=== PATIENT | female | born 1950 | race Caucasian/White ===

== ENCOUNTER 2016-11-22 10:44 | Day surgery (SDC) | payer MEDICARE, BC ==
[2016-11-22] MEDS ORDERED: LACTATED RINGERS 1,000 ML IV ONE ×2 (11:16→12:37)
[2016-11-22] MEDS ORDERED: MIDAZOLAM 2 MG/2 ML VIAL IVP ONE (11:36)
[2016-11-22] MEDS ORDERED: fentaNYL 250 MCG/5 ML VIAL IVP ONE (11:36)
[2016-11-22] MEDS ORDERED: ONDANSETRON 4 MG/2 ML VIAL ONE (13:13)
== END 2016-11-22 10:45 | disposition home or self-care (01) ==
PROC: 0DBK8ZX Excision of Ascending Colon, Via Natural or Artificial Opening Endoscopic, Diagnostic (ICD-10-PCS; principal; 2016-11-22 11:45)
DX: Z12.11 Encounter for screening for malignant neoplasm of colon (principal); D12.2 Benign neoplasm of ascending colon; I73.00 Raynaud's syndrome without gangrene; M81.0 Age-related osteoporosis without current pathological fracture; E89.0 Postprocedural hypothyroidism
CPT/HCPCS: 45380; J3010; J7120

== ENCOUNTER 2017-01-30 10:59 | Day surgery (SDC) | payer MEDICARE, BC ==
[2017-01-30] MEDS ORDERED: LACTATED RINGERS 1,000 ML IV ONE (11:18)
[2017-01-30] MEDS ORDERED: ONDANSETRON 4 MG/2 ML VIAL ONE (11:19)
[2017-01-30] MEDS ORDERED: fentaNYL 250 MCG/5 ML VIAL IVP ONE (12:23)
[2017-01-30] MEDS ORDERED: MIDAZOLAM 2 MG/2 ML VIAL IVP ONE (12:23)
== END 2017-01-30 11:00 | disposition home or self-care (01) ==
PROC: 0DBK8ZX Excision of Ascending Colon, Via Natural or Artificial Opening Endoscopic, Diagnostic (ICD-10-PCS; principal; 2017-01-30 12:00)
DX: D12.2 Benign neoplasm of ascending colon (principal); K57.30 Diverticulosis of large intestine without perforation or abscess without bleeding; H40.9 Unspecified glaucoma; M81.0 Age-related osteoporosis without current pathological fracture; Z88.0 Allergy status to penicillin
CPT/HCPCS: 45385; J3010; J7120

== ENCOUNTER 2017-02-12 13:52 | Outpatient (CLI) | payer MEDICARE, BC | END 2017-02-12 13:53 | disposition home or self-care (01) | DX: R05 Cough (principal); R50.9 Fever, unspecified ==

== ENCOUNTER 2017-09-16 08:33 | Outpatient (CLI) | payer MEDICARE, BC ==
--- NOTE | 2017-09-18 15:53 | Mammography Report ---
DIGITAL SCREENING MAMMOGRAPHY: 09/16/2017 COMPARISON: 09/14/2016, 09/13/2015, 09/13/2014, 07/17/2013, 07/18/2012, 06/11/2011, 04/03/2010. TECHNIQUE: Bilateral digital CC, exaggerated CC, and MLO projections. FINDINGS: The breast tissue is heterogeneously dense. There are no suspicious microcalcifications, skin thickening or significant interval change on the left. On the right, there is a questionable no dular area of increasing density in the posterior right breast 12 o'clock position. This likely repr esents superimposed of structures, but suggest additional evaluation by spot compression and true lat eral views. If density persists, ultrasound may be useful. IMPRESSION: NEGATIVE LEFT BREAST. BIRADS CATEGORY: 1, NEGATIVE. NEEDS ADDITIONAL EVALUATION RIGHT BREAST. BIRADS CATEGORY: 0, INCOMPLETE. STANDARD QUALIFYING STATEMENTS 1. This examination was reviewed with the aid of Computed-Aided Detection (CAD). 2. A negative or benign imaging report should not delay biopsy if clinically suspicious findings are present. Consider surgical consultation if warranted. More than 5% of cancers are not identified b y imaging. 3. Dense breasts may obscure an underlying neoplasm. 16:9:04 JOB #: [id number] EXT JOB #:[id number]
== END 2017-09-16 08:34 | disposition home or self-care (01) ==
LOC: DI 08:33
PROVIDERS: ATTEND Internal Medicine
DX: Z12.31 Encounter for screening mammogram for malignant neoplasm of breast (principal); R92.8 Other abnormal and inconclusive findings on diagnostic imaging of breast
CPT/HCPCS: 77067

== ENCOUNTER 2018-10-04 09:15 | Outpatient (CLI) | payer MEDICARE, BC ==
--- NOTE | 2018-10-06 10:18 | Ultrasound Report ---
Reason: THYROID ENLARGEMENT Procedure Date: 10/04/2018 Accession Number: [id number] / [id number] Procedure: US - Head or Neck Soft Tissue CPT Code: FULL RESULT: EXAM: THYROID ULTRASOUND EXAM DATE: 10/04/2018 10:07 AM. CLINICAL HISTORY: Thyroid enlargement. COMPARISON: None. TECHNIQUE: Real time sonographic imaging of the thyroid was performed by the diamond grinder. Multiple aircraft sales representative static images were saved for review. FINDINGS: THYROID GLAND: Status post right thyroidectomy. No masses are seen in the thyroid bed. Left Lobe: 4.7 x 2.1 x 2.1 cm, volume 10.8 cc. Relatively heterogeneous background echotexture with increased vascularity by color Doppler in the setting of multinodularity. Left Lobe Nodules: There are 3 dominant thyroid nodules which appear heterogeneous solid on ultrasound and measure 1.9 x 1.2 x 1.2 cm, 2.0 x 0.7 x 1.7 cm and 1.4 x 1.4 x 1.2 cm respectively. Isthmus: 0.2 cm AP. Isthmic Nodules: None. LYMPH NODES: No adenopathy demonstrated in the central or lateral compartment. OTHER: None. IMPRESSION: Hypervascular multinodular left lobe of the thyroid, most suggestive of multinodular goiter. While overall risk of malignancy is considered decreased with increasing number of thyroid nodules, all 3 dominant thyroid nodules in the left lobe meet criteria for fine-needle aspiration if this has not been performed. Management recommendations are based on 2015 [place] [employer] Management Guidelines for Adult Patients with Thyroid Nodules and Differentiated Thyroid Cancer. RADIA
== END 2018-10-04 09:16 | disposition home or self-care (01) ==
LOC: DI 09:15
PROVIDERS: ATTEND Internal Medicine
DX: E04.2 Nontoxic multinodular goiter (principal)
CPT/HCPCS: 76536

== ENCOUNTER 2018-10-08 12:50 | Outpatient (CLI) | payer MEDICARE, BC ==
--- NOTE | 2018-10-09 08:32 | Mammography Report ---
Reason: SCREENING MAMMO Procedure Date: 10/08/2018 Accession Number: [id number] / [id number] Procedure: [facility] - Screening Mammo w/Shamar CPT Code: FULL RESULT: EXAM: Screening Mammo w/Shamar DATE: 10/08/2018 1:12 PM CLINICAL HISTORY: Screening encounter. History of early menses. History of cyst removal in 1970 as well as history of stereotactic biopsies with benign pathology results. TECHNIQUE: Bilateral CC and MLO views were obtained. COMPARISON: 09/16/2017 through 09/13/2014. FINDINGS: The breasts demonstrate heterogeneously dense fibroglandular parenchyma bilaterally. A biopsy clip is again seen in the left breast. No suspicious masses, clustered microcalcifications, or regions of architectural distortion are identified. IMPRESSION: Benign findings RECOMMENDATION: Routine annual screening unless otherwise clinically indicated. BIRADS CATEGORY 2: Benign findings STANDARD QUALIFYING STATEMENTS: 1. This examination was not reviewed with the aid of Computer-Aided Detection (CAD). 2. A negative or benign imaging report should not preclude biopsy if clinically suspicious findings are present. 3. Dense breasts may obscure an underlying neoplasm. 4. This examination was reviewed with the aid of 3D breast imaging (tomosynthesis).
== END 2018-10-08 12:51 | disposition home or self-care (01) ==
LOC: DI 12:50
DX: Z12.31 Encounter for screening mammogram for malignant neoplasm of breast (principal)
CPT/HCPCS: 77063; 77067

== ENCOUNTER 2018-11-27 13:33 | Outpatient (CLI) | payer MEDICARE, BC ==
[2018-11-27] MEDS ORDERED: BUFFERED LIDOCAINE 10 ML SYRINGE ONE (13:35)
[2018-11-27] MEDS ORDERED: BUPIVACAINE 0.5%-EPI 1:200000 PF 10 ML VIAL ONE (14:10)
[2018-11-27] MEDS ORDERED: BUFFERED LIDOCAINE 10 ML SYRINGE IU ONE (17:59)
[2018-11-27] MEDS ORDERED: BUPIVACAINE 0.5%-EPI 1:200000 PF 10 ML VIAL SUBQ ONE (17:59)
--- NOTE | 2018-11-28 09:25 | Ultrasound Report ---
Reason: THYROID NODULE Procedure Date: 11/27/2018 Accession Number: [id number] / [id number] Procedure: US - FNA Bx w/US Gnd 1st les CPT Code: 78279 FULL RESULT: PROCEDURE: ULTRASOUND GUIDED BIOPSY PREOPERATIVE DIAGNOSIS: Nodules in left thyroid lobe in a patient with prior right thyroidectomy for Hurthle cell adenoma. POSTOPERATIVE DIAGNOSIS: Same TECHNIQUE: Following written and oral informed consent including procedure risks and alternatives, the patient was brought to the Ultrasound suite and positioned. Using local anesthesia, sterile technique, and direct ultrasound control, the 2 most suspicious thyroid nodules are localized: 1. Lateral mid thyroid vascular hypoechoic 2 x 0.7 x 1.7 cm 2. Superior pole 1.9 x 1.2 x 1.2 cm mildly vascular with calcification. 6 FNA samples are obtained of each nodule with 3 placed in CytoLyt and 3 in Thyrosec. All 12 samples are appropriately marked and are sent to pathology for evaluation. ANESTHESIA: Local with lidocaine and Sensorcaine. PEDIATRIC SPORTS MEDICINE SPECIALIST: Dr Hickman ESTIMATED BLOOD LOSS: Minimal FLUOROSCOPY TIME: None. COMPLICATIONS: None. CONDITION: Good. SPECIMEN: 22-gauge FNA x12 IMPLANTS: None. FINDINGS: Real-time ultrasound performed with static images saved to the PACS demonstrating the needle directed into the nodules. IMPRESSION: Uncomplicated ultrasound guided FNA of 2 left thyroid nodules as described. Pathology results will be reported separately. RADIA
== END 2018-11-27 13:34 | disposition home or self-care (01) ==
LOC: DI 13:33
PROVIDERS: ATTEND Internal Medicine
DX: E04.2 Nontoxic multinodular goiter (principal)
CPT/HCPCS: 10005

== ENCOUNTER 2019-03-05 12:56 | Outpatient (CLI) | payer MEDICARE, BC ==
[2019-03-05 13:40] LABS: CALCIUM 9.3 mg/dL (8.5-10.3)
[2019-03-05 13:56] LABS: THYROID STIMULATING HORMONE 0.39 uIU/mL (0.34-5.60)
[2019-03-05 13:59] LABS: FREE T4 (FREE THYROXINE) 1.39 ng/dL (0.58-1.64)
[2019-03-10 13:21] LABS: THYROGLOBULIN 0.3 ng/mL
== END 2019-03-05 12:57 | disposition home or self-care (01) ==
LOC: LAB 12:56
PROVIDERS: ATTEND Internal Medicine Endocrinology, Diabetes & Metabolism
DX: C73 Malignant neoplasm of thyroid gland (principal)
CPT/HCPCS: 36415; 80048; 82306; 83970; 84432; 84439; 84443; 86800

== ENCOUNTER 2019-10-06 10:04 | Outpatient (CLI) | payer MEDICARE, BC ==
--- NOTE | 2019-10-06 13:35 | XRAY Report ---
Reason: RT HIP PAIN Procedure Date: 10/06/2019 Accession Number: [id number] / [id number] Procedure: XR - Hip w/Pelvis 2-3V RT CPT Code: Final Report FULL RESULT: EXAM: RIGHT HIP RADIOGRAPHY EXAM DATE: 10/06/2019 10:28 AM. CLINICAL HISTORY: Right hip pain. COMPARISON: None. TECHNIQUE: 2 views of the right hip and AP view of the pelvis. FINDINGS: Bones: Normal. No fractures or bone lesion. Joints: Mild marginal osteophytosis of both femoral acetabular joints. No dislocation. The hip joint space is moderately narrowed on the right and mildly narrowed on the left. Soft Tissues: Normal. No soft tissue swelling. IMPRESSION: Moderate degenerative disease of the right hip. RADIA
== END 2019-10-06 10:05 | disposition home or self-care (01) ==
LOC: DI 10:04
PROVIDERS: ATTEND Internal Medicine
DX: M16.11 Unilateral primary osteoarthritis, right hip (principal)

== ENCOUNTER 2019-10-21 11:45 | Outpatient (CLI) | payer MEDICARE, BC ==
[2019-10-21 12:48] LABS: CALCIUM 9.1 mg/dL (8.5-10.3); CREATININE 0.9 mg/dL (0.4-1.0)
== END 2019-10-21 11:46 | disposition home or self-care (01) ==
LOC: LAB 11:45
PROVIDERS: ATTEND Internal Medicine Endocrinology, Diabetes & Metabolism
DX: C73 Malignant neoplasm of thyroid gland (principal)
CPT/HCPCS: 36415; 80048; 84432; 84443; 86800

== ENCOUNTER 2020-05-03 08:07 | Outpatient (CLI) | payer MEDICARE, BC ==
[2020-05-03 08:38] LABS: CALCIUM 9.2 mg/dL (8.5-10.3)
== END 2020-05-03 08:08 | disposition home or self-care (01) ==
LOC: LAB 08:07
PROVIDERS: ATTEND Internal Medicine Endocrinology, Diabetes & Metabolism
DX: C73 Malignant neoplasm of thyroid gland (principal)
CPT/HCPCS: 36415; 80048; 84432; 84443; 86800

== ENCOUNTER 2020-09-12 16:52 | Outpatient (CLI) | payer MEDICARE, BC | END 2020-09-12 16:53 | disposition home or self-care (01) | LOC: COV 16:52 | PROVIDERS: ATTEND Family Medicine | DX: R50.9 Fever, unspecified (principal); R05 Cough; M79.10 Myalgia, unspecified site; R09.81 Nasal congestion; Z20.828 Contact with and (suspected) exposure to other viral communicable diseases ==

== ENCOUNTER 2020-10-13 14:15 | Outpatient (CLI) | payer MEDICARE, BC ==
--- NOTE | 2020-10-13 15:40 | DEXA Report ---
PROCEDURE: Dexa Spine and/or Hip INDICATIONS: OSTEOPOROSIS TECHNIQUE: Dual energy x-ray absorptiometry (DXA) was performed on a [employer] System. Regions measur ed are the AP Spine, femoral neck, and if needed forearm. COMPARISON: 09/14/2016. FINDINGS: Lumbar Spine: Bone Mineral Density 0.834 g/cm/cm,T score -2.9, /there is interval 3.5% increase in total lumbar spine bone mineral density since previous study. Left Hip: Bone Mineral Density 0.769 g/cm/cm,T score -1.9, there is 2.2% decrease in left total hip bone compliance examiner al density since previous study. Left Femoral Neck: Bone Mineral Density 0.770 g/cm/cm, T score -1.9. Impression: Osteoporosis. Patients with diagnosis of osteoporosis or osteopenia should have regular bone mineral density assess ment. For those eligible for Medicare, routine testing is allowed once every 2 years. Testing frequ ency can be increased for patients who have rapidly progressing disease or for those who are receivin g medical therapy to restore bone mass. Reviewed by: Godfrey Chow MD on 10/13/2020 3:39 PM PST Approved by: Godfrey Chow MD on 10/13/2020 3:39 PM PST Station ID: [id number]
== END 2020-10-13 14:16 | disposition home or self-care (01) ==
LOC: DI 14:15
PROVIDERS: ATTEND Internal Medicine
DX: M81.0 Age-related osteoporosis without current pathological fracture (principal)

== ENCOUNTER 2020-11-01 08:00 | Outpatient (CLI) | payer MEDICARE, BC ==
[2020-11-01 10:08] LABS: CALCIUM 9.2 mg/dL (8.5-10.3)
== END 2020-11-01 23:59 | disposition home or self-care (01) ==
LOC: LAB 08:00
PROVIDERS: ATTEND Internal Medicine Endocrinology, Diabetes & Metabolism
DX: C73 Malignant neoplasm of thyroid gland (principal)
CPT/HCPCS: 36415; 80048; 84443; 86800

== ENCOUNTER 2020-11-08 08:00 | Outpatient (CLI) | payer MEDICARE, BC | END 2020-11-08 23:59 | disposition home or self-care (01) | LOC: LAB 08:00 | PROVIDERS: ATTEND Internal Medicine Endocrinology, Diabetes & Metabolism | DX: C73 Malignant neoplasm of thyroid gland (principal) | CPT/HCPCS: 36415; 84432; 86800 ==

== ENCOUNTER 2021-04-20 09:48 | Outpatient (CLI) | payer MEDICARE, BC ==
[2021-04-20 10:26] LABS: CALCIUM 9.4 mg/dL (8.5-10.3); POTASSIUM 4.1 mmol/L (3.5-5.0)
[2021-04-25 21:56] LABS: THYROGLOBULIN <0.1 ng/mL
== END 2021-04-20 09:49 | disposition home or self-care (01) ==
LOC: LAB 09:48
PROVIDERS: ATTEND Internal Medicine Endocrinology, Diabetes & Metabolism
DX: C73 Malignant neoplasm of thyroid gland (principal)
CPT/HCPCS: 36415; 80048; 84432; 84443; 86800

== ENCOUNTER 2021-05-29 12:24 | Outpatient (CLI) | payer MEDICARE, BC ==
[2021-05-29] MEDS ORDERED: IOPAMIDOL-300 100 ML VIAL ONE (12:49)
[2021-05-29] MEDS ORDERED: IOVERSOL 320 50 ML VIAL ONE (12:49)
--- NOTE | 2021-05-29 14:54 | CT Report ---
PROCEDURE: Abdomen/Pelvis W INDICATIONS: RLQ PAIN CONTRAST: IV CONTRAST: Isovue 300 ml: 100 PO CONTRAST: Optiray 320 ml50 TECHNIQUE: After the administration of IV and oral contrast, 5 mm thick sections acquired from the diaphragms to the symphysis. 5 mm thick coronal and sagittal reformats were acquired. For radiation dose reducti on, the following was used: automated exposure control, adjustment of mA and/or kV according to madi ent size. COMPARISON: None. FINDINGS: ABDOMEN: Lung bases: Normal Heart:Normal. Liver: Low-attenuation presumed cyst involving the subcapsular left lobe on image 27/3 measuring 2 cm . Hepatic foci statistically representing cysts although technically indeterminate due to small size. Hepatic steatosis. Gallbladder: Partially contracted otherwise unremarkable. Bile ducts: Normal. Pancreas: Normal. Spleen: Normal. Adrenals: Normal. Kidneys and ureters: Normal. Stomach and duodenum: Normal. Bowel: Normal. The appendix is not clearly identified however no suspicious inflammatory changes in t he right lower quadrant. No evidence of bowel obstruction. Scattered air-fluid levels which are technically nonspecific. Colon ic diverticulosis incidentally noted without evidence of acute inflammation. Other: No free fluid or air. Abdominal nodes: Normal. Aorta: Normal in size. IVC: Normal. Ventral wall: Normal. PELVIS: Bladder: Normal. Pelvic nodes: Normal. Inguinal: No hernia. Bones: No vertebral body compression fracture. No suspicious bone lesion. IMPRESSION: The appendix is not clearly identified however no suspicious inflammatory changes in the right lower quadrant. Elsewhere, no acute abnormality. Hepatic steatosis. Presumed hepatic cysts. Reviewed by: Neno Penn MD on 05/29/2021 2:52 PM PDT Approved by: Neno Penn MD on 05/29/2021 2:52 PM PDT Station ID: [id number]
[2021-05-29] MEDS ORDERED: IOPAMIDOL-300 100 ML VIAL IVP ONE (15:00)
[2021-05-29] MEDS ORDERED: IOVERSOL 320 50 ML VIAL PO ONE (15:00)
== END 2021-05-29 12:25 | disposition home or self-care (01) ==
LOC: DI 12:24
PROVIDERS: ATTEND Internal Medicine
DX: R10.31 Right lower quadrant pain (principal); Z79.899 Other long term (current) drug therapy
CPT/HCPCS: 36415; 74177; 82565; Q9967

== ENCOUNTER 2021-12-14 15:44 | Outpatient (CLI) | payer MEDICARE, BC ==
[2021-12-14 16:13] LABS: EOSINOPHILS # (AUTO) 0.1 10^3/uL (0.0-0.7); HCT - HEMATOCRIT 44.2 % (37.0-47.0); HGB - HEMOGLOBIN 14.4 g/dL (12.0-16.0); LYMPHOCYTES # (AUTO) 0.4 10^3/uL (1.5-3.5); LYMPHOCYTES % (AUTO) 10.5 %; MEAN CORPUSCULAR HEMOGLOBIN 32.7 pg (27.0-31.0); MEAN CORPUSCULAR HGB CONC 32.6 g/dL (32.0-36.0); MEAN CORPUSCULAR VOLUME 100.2 fL (81.0-99.0); MEAN PLATELET VOLUME 11.1 fL (7.9-10.8); MONOCYTES # (AUTO) 0.4 10^3/uL (0.0-1.0); MONOCYTES % (AUTO) 8.8 %; NEUTROPHILS # (AUTO) 3.2 10^3/uL (1.5-6.6); NEUTROPHILS % (AUTO) 77.5 %; NRBC ABSOLUTE COUNT (AUTO) 0.04 x10^3/uL; PLT - PLATELET COUNT 133 10^3/uL (130-450); RED BLOOD COUNT 4.41 10^6/uL (4.20-5.40); RED CELL DISTRIBUTION WIDTH 12.5 % (12.0-15.0); WHITE BLOOD COUNT 4.1 x10^3/uL (4.8-10.8)
[2021-12-14 16:25] LABS: ALBUMIN 4.5 g/dL (3.2-5.5); ALBUMIN/GLOBULIN RATIO 1.9 (1.0-2.2); ALKALINE PHOSPHATASE 67 IU/L (42-121); ALT ALANINE AMINOTRANSFERASE 18 IU/L (10-60); AST ASPARTATE AMINOTRANSFERASE 22 IU/L (10-42); BUN - BLOOD UREA NITROGEN 21 mg/dL (6-20); CALCIUM 9.3 mg/dL (8.5-10.3); CARBON DIOXIDE - CO2 29 mmol/L (21-32); CHLORIDE 101 mmol/L (101-111); CHOL/HDL RATIO 2.5 (<4.4); CHOLESTEROL 203 mg/dL; CREATININE 0.9 mg/dL (0.4-1.0); GFR - MDRD 62 (>89); GLUCOSE 90 mg/dL (70-100); HDL CHOLESTEROL 82 mg/dL; LDL CHOLESTEROL,CALCULATED 110 mg/dL; LDL/HDL RATIO 1.3 (<4.4); POTASSIUM 4.6 mmol/L (3.5-5.0); SODIUM 140 mmol/L (135-145); TOTAL PROTEIN 6.9 g/dL (6.7-8.2); TRIGLYCERIDES 55 mg/dL; VLDL CHOLESTEROL 11 mg/dL
== END 2021-12-14 15:45 | disposition home or self-care (01) ==
LOC: LAB.R 15:44
PROVIDERS: ATTEND Internal Medicine
DX: Z00.00 Encounter for general adult medical examination without abnormal findings (principal); N60.19 Diffuse cystic mastopathy of unspecified breast; H40.9 Unspecified glaucoma; Z86.010 Personal history of colon polyps; Z13.6 Encounter for screening for cardiovascular disorders; Z79.899 Other long term (current) drug therapy
CPT/HCPCS: 80053; 80061; 82306; 83721; 85025

== ENCOUNTER 2022-01-23 13:22 | Outpatient (CLI) | payer MEDICARE, BC ==
--- NOTE | 2022-01-24 14:06 | Mammography Report ---
BILATERAL DIGITAL SCREENING MAMMOGRAM 3D/2D: 01/23/2022 CLINICAL: Routine screening. Comparison is made to exams dated: 05/13/2020 mammogram, 10/08/2018 mammogram, 09/16/2017 mammogram, 11/15/2015 mammogram, and 09/13/2015 mammogram - [facility]. The tissue of both breas ts is heterogeneously dense. This may lower the sensitivity of mammography. There is a biopsy clip in the left breast. No significant masses, calcifications, or other findings are seen in either breast. There has been no significant interval change. IMPRESSION: NEGATIVE There is no mammographic evidence of malignancy. A 1 year screening mammogram is recommended. This exam was interpreted at Station ID: [id number]. NOTE: For mammograms, a report in lay terms will be sent to the patient. Approximately 15% of breast malignancies will not be visualized mammographically. In the management of a palpable breast mass, a negative mammogram must not discourage biopsy of a clinically suspicious lesion. Electronically Signed By: Robson Castañeda M.D. [facility] [place]:01/23/2022 15:54:42 ACR BI-RADS Category 1: Negative 3341F PARENCHYMAL PATTERN: (D) - The breast(s) demonstrate(s) heterogeneously dense fibroglandular vickie byrd. BI-RADS CATEGORY: (1) - 1 RECOMMENDATION: (ANNUAL) - Recommend routine annual screening mammography. [id number] 1 year screening LATERALITY: (B)
== END 2022-01-23 13:23 | disposition home or self-care (01) ==
LOC: DI.N 13:22
PROVIDERS: ATTEND Internal Medicine
DX: Z12.31 Encounter for screening mammogram for malignant neoplasm of breast (principal)

== ENCOUNTER 2022-04-27 08:39 | Outpatient (CLI) | payer MEDICARE, BC ==
[2022-04-27 09:27] LABS: CALCIUM 9.7 mg/dL (8.5-10.3); CREATININE 0.9 mg/dL (0.4-1.0)
== END 2022-04-27 08:40 | disposition home or self-care (01) ==
LOC: LAB 08:39
PROVIDERS: ATTEND Internal Medicine Endocrinology, Diabetes & Metabolism
DX: C73 Malignant neoplasm of thyroid gland (principal)
CPT/HCPCS: 36415; 80048; 81599; 84432; 84443; 86800

== ENCOUNTER 2023-02-10 10:28 | Outpatient (CLI) | payer MEDICARE, BC ==
[2023-02-10 10:58] LABS: BILIRUBIN,URINE NEGATIVE (NEGATIVE); GLUCOSE, URINE (UA) NEGATIVE (NEGATIVE); KETONES,URINE (UA) NEGATIVE (NEGATIVE); LEUKOCYTE ESTERASE, URINE NEGATIVE (NEGATIVE); NITRITE,URINE NEGATIVE (NEGATIVE); OCCULT BLOOD,URINE NEGATIVE (NEGATIVE); PROTEIN,URINE NEGATIVE (NEGATIVE); UROBILINOGEN,URINE 0.2 (NORMAL) E.U./dL (NORMAL)
[2023-02-10 11:41] LABS: BACTERIA,URINE None Seen /HPF (None Seen); CLARITY,URINE CLEAR (CLEAR); RBC,URINE None Seen /HPF (0-5); SQUAMOUS EPITHELIAL CELL,UR NONE SEEN (<= Few); WBC,URINE 0-3 /HPF (0-5)
== END 2023-02-10 10:29 | disposition home or self-care (01) ==
LOC: LAB 10:28
PROVIDERS: ATTEND Internal Medicine
DX: Z01.818 Encounter for other preprocedural examination (principal)
CPT/HCPCS: 81001; 81599; 87081; 87086; 87640

== ENCOUNTER 2023-04-17 13:14 | Outpatient (CLI) | payer MEDICARE, BC ==
[2023-04-17 13:50] LABS: POTASSIUM 3.8 mmol/L (3.5-5.0)
[2023-04-18 19:07] LABS: THYROGLOBULIN ANTIBODY <1.0 IU/mL (0.0-0.9); THYROGLOBULIN BY IMA 0.2 ng/mL (1.5-38.5)
== END 2023-04-17 13:15 | disposition home or self-care (01) ==
LOC: LAB 13:14
PROVIDERS: ATTEND Internal Medicine Endocrinology, Diabetes & Metabolism
DX: C73 Malignant neoplasm of thyroid gland (principal)
CPT/HCPCS: 36415; 80048; 84443; 86800

== ENCOUNTER 2024-03-04 10:21 | Outpatient (CLI) | payer MEDICARE, BC ==
--- NOTE | 2024-03-16 09:32 | Mammography Report ---
BILATERAL DIGITAL SCREENING MAMMOGRAM 3D/2D: 03/04/2024 CLINICAL: Routine screening. Comparison is made to exams dated: 01/23/2022 mammogram, 05/13/2020 mammogram, 10/08/2018 mammogram, a nd 09/16/2017 mammogram - [facility]. Both breasts are heterogeneously dense, which may obscure small masses (category c / 51-75% glandular tissue). There is a biopsy clip in the left breast. No significant masses, calcifications, or other findings are seen in either breast. There has been no significant interval change. IMPRESSION: NEGATIVE There is no mammographic evidence of malignancy. A 1 year screening mammogram is recommended. Based on the Tyrer Cuzick model (a risk assessment model) the patient's lifetime risk is 5.3% and her 10 year risk is 4.3%. According to the ACR, ACS, and NCCN guidelines, an annual breast MRI exam rosa elena g with mammogram is recommended if the patient's lifetime risk is 20% or greater. This exam was interpreted at Station ID: [id number]. NOTE: For mammograms, a report in lay terms will be sent to the patient. Approximately 15% of breast malignancies will not be visualized mammographically. In the management of a palpable breast mass, a negative mammogram must not discourage biopsy of a clinically suspicious lesion. Electronically Signed By: Robson schuster/timothy:03/13/2024 18:25:49 letter sent: No_Letter ACR BI-RADS Category 1: Negative 3341F PARENCHYMAL PATTERN: (D) - The breast(s) demonstrate(s) heterogeneously dense fibroglandular vickie byrd. BI-RADS CATEGORY: (1) - 1 RECOMMENDATION: (ANNUAL) - Recommend routine annual screening mammography. [id number] 1 year screening LATERALITY: (B)
== END 2024-03-04 10:22 | disposition home or self-care (01) ==
LOC: DI 10:21
DX: Z12.31 Encounter for screening mammogram for malignant neoplasm of breast (principal); R92.333 Mammographic heterogeneous density, bilateral breasts